=== PATIENT | male | born 1965 | race Caucasian/White ===

== ENCOUNTER 2021-12-01 10:35 | Emergency (ER) | payer BC ==
[~2021-12-01] VITALS: Ht 182.9 cm; Wt 99.8 kg
[2021-12-01 11:00] LABS: BASOPHILS % (AUTO) 0.1 % (0.0-5.0); EOSINOPHILS % (AUTO) 0.1 % (0.0-8.0); HEMATOCRIT 47.4 % (42-54); LYMPHOCYTES % (AUTO) 32.7 % (21.0-51.0); MEAN CORPUSCULAR HEMOGLOBIN 31.6 pg (27.0-33.0); MEAN CORPUSCULAR HGB CONC 33.8 g/dL (32.0-36.0); MEAN CORPUSCULAR VOLUME 93.5 fL (79-99); MONOCYTES % (AUTO) 12.4 % (3.0-13.0); NEUTROPHILS % (AUTO) 54.6 % (40.0-77.0); PLATELET COUNT (AUTO) 248 K/uL (130-400); RED BLOOD CELL COUNT(AUTO) 5.07 MIL/uL (4.50-6.20); RED CELL DISTRIBUTION WIDTH 12.3 % (11.0-15.5); WHITE BLOOD COUNT (AUTO) 7.7 K/uL (4.8-10.8)
[2021-12-01 11:10] LABS: CARBON DIOXIDE 22 mmol/L (21-32); CHLORIDE 103 mmol/L (101-111); CREATININE 1.1 mg/dL (0.5-1.5); GLOMERULAR FILTR. RATE CALC 74 mL/min (>60); GLUCOSE,RANDOM 153 mg/dL (70-105); POTASSIUM 4.1 mmol/L (3.5-5.1); SODIUM SERUM 140 mmol/L (136-145); UREA NITROGEN, BLOOD 12 mg/dL (7-18)
[2021-12-01 11:20] LABS: ALANINE AMINOTRANSFERASE 78 U/L (12-78); ALBUMIN 3.7 g/dL (3.5-5.0); ALCOHOL, BLOOD < 3 mg/dL (0-10); ASPARTATE AMINOTRANSFERASE 38 U/L (10-37); BILIRUBIN,TOTAL 0.7 mg/dL (0.2-1.0); CREATINE KINASE, TOTAL 73 U/L (21-232); MYOGLOBIN 22 ng/mL (10-92); TOTAL PROTEIN, SERUM 7.4 g/dL (6.0-8.3)
[2021-12-01 12:53] VITALS: BP 124/74
[2021-12-01 13:02] LABS: AMPHET/METH SCREEN,URINE NEGATIVE (NEGATIVE); BARBITURATE SCREEN, URINE NEGATIVE (NEGATIVE); BENZODIAZEPINES SCREEN,URINE NEGATIVE (NEGATIVE); CANNABINOID SCREEN,URINE NEGATIVE (NEGATIVE); COCAINE SCREEN,URINE NEGATIVE (NEGATIVE); OPIATE SCREEN,URINE NEGATIVE (NEGATIVE); PHENCYCLIDINE SCREEN,URINE NEGATIVE (NEGATIVE)
== END 2021-12-01 13:17 | disposition home or self-care (01) ==
LOC: EDH 10:35
DX: E86.0 Dehydration (principal); I10 Essential (primary) hypertension; Z88.0 Allergy status to penicillin
CPT/HCPCS: 36415; 70450; 80053; 80305; 82550; 83874; 84484; 85025; 93005

== ENCOUNTER 2025-04-09 12:18 | Emergency (ER) | payer BC ==
[~2025-04-09] VITALS: Ht 182.9 cm; Wt 95.3 kg
[2025-04-09 12:23] VITALS: TEMP 98.5; O2SAT 96
--- NOTE | 2025-04-09 13:59 | ERN ---
General Chief Complaint: Anxiety/Panic Attack Stated Complaint: PANIC Time Seen by MD: 12:49 Source: patient, family History of Present Illness Initial Comments 59-year-old male who is only past medical history is hypertension a comes in with feelings of chest tightness numbness in his arms and a funny feeling of being anxious. He was driving out of town in his symptoms were so bad he felt he just needed to stop and come to the emergency room for evaluation. Patient states he does use an nicotine pouches daily. Allergies: Coded Allergies: Penicillins (Unverified Allergy, Unknown, 12/01/21) Past Medical History Past Medical History: Hypertension Past Surgical History: None Constitutional: (-) chills, (-) diaphoresis, (-) fever, (-) malaise, (-) weakness, (-) other documentation EENTM: (-) eye pain, (-) blurred vision, (-) tearing, (-) double vision, (-) ear pain, (-) ear discharge, (-) nose pain, (-) nose congestion, (-) throat pain, (-) Throat swelling, (-) mouth pain, (-) tooth pain, (-) mouth swelling, (-) other documentation Respiratory: (-) cough, (-) orthopnea, (-) short of breath, (-) stridor, (-) wheezing, (-) other documentation Cardiovascular: (+) other documentation (Chest tightness) Gastrointestinal/Abdominal: (-) nausea, (-) vomiting, (-) diarrhea, (-) abdominal pain, (-) abdominal distention, (-) constipation, (-) rectal bleeding, (-) dark stool/melena, (-) other documentation Genitourinary: (-) penile discharge, (-) dysuria, (-) frequency, (-) hematuria, (-) pain, (-) other documentation Musculoskeletal: (-) Neck pain, (-) back pain, (-) Flank Pain, (-) joint pain, (-) joint swelling, (-) muscle pain, (-) muscle stiffness, (-) gout, (-) other documentation Physical Exam General Appearance: (+) mild distress Orientation: (+) alert, (+) oriented x 3 Head/Face Trauma: No Eye: bilateral eye normal inspection, bilateral eye PERRL, bilateral eye EOMI Ear, Nose, Throat: (+) hearing grossly normal, (+) normal ENT inspection, (+) moist mucous membraine Neck: (+) normal inspection, (+) supple, (+) full range of motion, (+) no JVD Respiratory: (+) chest non-tender, (+) lungs clear, (+) well ventilated Heart: (+) regular, (+) no gallop Vascular: (+) no edema, (+) normal peripheral pulse Gastrointestinal: (+) soft, (+) non-tender, (+) bowel sound present Results Laboratory and Microbiology Lab and Micro Result Laboratory Tests Test 04/09/25 13:27 04/09/25 13:58 04/09/25 14:54 Sodium Level 140 mmol/L (136-145) Potassium Level 4.1 mmol/L (3.5-5.1) Chloride Level 102 mmol/L (101-111) Carbon Dioxide Level 29 mmol/L (21-32) Blood Urea Nitrogen 14 mg/dL (7-18) Creatinine 1.0 mg/dL (0.5-1.3) Glomerular Filtration Rate Calc 87 mL/min (>90) Random Glucose 103 mg/dL (70-105) Lactic Acid Level 2.1 mmol/L (0.8-2.5) Total Calcium 9.2 mg/dL (8.5-10.1) Total Bilirubin 0.4 mg/dL (0.2-1.0) Aspartate Amino Transf (AST/SGOT) 64 U/L (10-37) H Alanine Aminotransferase (ALT/SGPT) 100 U/L (12-78) H Alkaline Phosphatase 80 U/L (50-136) Total Protein 7.3 g/dL (6.0-8.3) Albumin 3.6 g/dL (3.5-5.0) White Blood Count 7.5 K/uL (4.8-10.8) Red Blood Count 5.18 MIL/uL (4.50-6.20) Hemoglobin 16.6 g/dL (14.0-18.0) Hematocrit 48.0 % (42-54) Mean Corpuscular Volume 92.7 fL (79-99) Mean Corpuscular Hemoglobin 32.0 pg (27.0-33.0) Mean Corpuscular Hemoglobin Concent 34.6 g/dL (32.0-36.0) Red Cell Distribution Width 13.4 % (11.0-15.5) Platelet Count 254 K/uL (130-400) Mean Platelet Volume 10.0 fL (7.5-10.5) Immature Granulocyte % (Auto) 0.3 % (0-1) Neutrophils (%) (Auto) 71.6 % (40.0-77.0) Lymphocytes (%) (Auto) 18.1 % (21.0-51.0) L Monocytes (%) (Auto) 8.8 % (3.0-13.0) Eosinophils (%) (Auto) 0.7 % (0.0-8.0) Basophils (%) (Auto) 0.5 % (0.0-5.0) Neutrophils # (Auto) 5.4 K/uL (1.8-7.7) Lymphocytes # (Auto) 1.4 K/uL (1.0-4.8) Monocytes # (Auto) 0.7 K/uL (0.1-1.0) Eosinophils # (Auto) 0.05 K/uL (0.00-0.70) Basophils # (Auto) 0.04 K/uL (0.00-0.20) Absolute Immature Granulocyte (auto 0.02 K/uL (0-1) Nucleated Red Blood Cells 0.0 % (0.0-0.19) Troponin I High Sensitivity 7 ng/L (4-75) Urine Color LIGHT-YELLOW (YELLOW) Urine Appearance CLEAR (CLEAR) Urine pH 6.5 (5.0-8.0) Urine Specific [place] 1.010 (1.001-1.031) Urine Protein NEGATIVE mg/dL (NEGATIVE) Urine Glucose (UA) NEGATIVE mg/dL (NEGATIVE) Urine Ketones 5 mg/dL (NEGATIVE) H Urine Occult Blood NEGATIVE (NEGATIVE) Urine Nitrate NEGATIVE (NEGATIVE) Urine Bilirubin NEGATIVE mg/dL (NEGATIVE) Urine Urobilinogen 0.2 mg/dL (0.2-1.0) Urine Leukocyte Esterase NEGATIVE Meet/uL MDM MDM: Differential diagnosis: Nicotine withdrawal, dehydration, acute IL, PE, hyperventilation syndrome Rationale: Tests considered and ordered secondary to shared decision making include: Previous outside records reviewed: Old ER visits. Risk of complication and/or morbidity or mortality of patient management: None Medications-Per medication reconciliation Need for hospitalization: Patient does meet criteria for hospitalization. Need for emergency major/minor surgery: No There are no social concerns with this patient. Prescription drug management Prescriptions will include symptomatic care Patient's prior external medical records from other ER visits were reviewed by me as indicated. Prior testing and results from previous visits were reviewed. Prior tests were taken into account with medical decision making and resource utilization, independent historian/historians were used to obtain complete medical history. I independently interpreted the test that were performed, results were reviewed by me and considered findings on radiology if ordered. Patient's CBC is normal. Patient's chemistry panel likewise is normal. He did have a slight elevation in his transaminases. His cardiac enzymes were negative. His urine did show some ketones. Patient feels much better with a L of fluid in him. And he is ready to be discharged. ED Course Orders Procedure Category Date Status Time 12 Lead Ekg Tracing- EKG 04/09/25 Complete Technical 13:27 Comprehensive LAB 04/09/25 Complete Metabolic Panel 13:27 Cbc With Differential LAB 04/09/25 Complete 13:27 Lactic Acid LAB 04/09/25 Complete 13:27 Urinalysis Profile LAB 04/09/25 Complete 13:27 Troponin I High LAB 04/09/25 Complete Sensitivity 13:27 Lactated Ringers PHA 04/09/25 Complete 1000ml (Lactated 13:27 Current Medications Medications (Trade) Dose Ordered Sig/Jaden Route PRN Reason Start Time Stop Time Status Last Admin Dose Admin Lactated Ringer's (Lactated Ringers 1000ml) 1,000 ml BOLUS STAT IV 04/09/25 13:27 04/09/25 13:32 DC 04/09/25 15:28 Vital Signs Date Time Temp Pulse Resp B/P (MAP) Pulse Ox O2 Delivery O2 Flow Rate FiO2 04/09/25 15:00 49 18 164/97 Room Air* 0 21 04/09/25 12:23 98.4 97 18 163/115 96 Room Air* 0 21 04/09/25 12:20 98.4 97 18 163/115 96 Room Air 0 DX & DISP Disposition: Discharge Departure Impression: Primary Impression: Dehydration after exertion Condition: Stable Additional Instructions: My best guess is that your symptoms were driven by a dehydration. Your chemistry panel was normal except for a mild transaminitis. Please follow-up with her primary care Physician regarding this. Your complete blood count was normal as well. Your cardiac enzymes showed no signs of damage to your heart and your EKG was normal as well. There were some ketones in her urine, which can be a sign of dehydration. You do need to see a doctor to follow up and get your blood pressure under better control. Referrals: JANELLE BRIGHT MD (PCP) POLINA NIELSON MD Apr 09, 2025 13:59
[2025-04-09 14:14] LABS: IMMATURE GRANULOCYTE ABSOLUTE 0.02 K/uL (0-1); NUCLEATED RED BLOOD CELLS 0.0 % (0.0-0.19); PLATELET COUNT (AUTO) 254 K/uL (130-400); RED BLOOD CELL COUNT(AUTO) 5.18 MIL/uL (4.50-6.20); RED CELL DISTRIBUTION WIDTH 13.4 % (11.0-15.5); WHITE BLOOD COUNT (AUTO) 7.5 K/uL (4.8-10.8)
--- NOTE | 2025-04-09 14:22 | EKG ---
[facility] Test Date: 2025-04-09 Test Time: 12:06:36 Pat Name: GREYSON QUINN Department: ED Room: Gender: M Urology Physician: [facility] : 1965 Requested By: POLINA NIELSON Order Number: [id number] Reading MD: Ta Tobar Measurements Intervals [place] Rate: 104 P: 64 DE: 173 QRS: -32 QRSD: 105 T: 28 QT: 353 QTc: 465 Interpretive Statements Sinus tachycardia Left axis deviation Compared to ECG 12/01/2021 10:46:01 Left-axis deviation now present Sinus rhythm no longer present Incomplete right bundle-branch block no longer present Electronically Signed On 04-09-2025 17:25:51 CDT by Ta Tobar Please click the below link to view image of tracing.
[2025-04-09 14:27] LABS: CREATININE 1.0 mg/dL (0.5-1.3); GLOMERULAR FILTR. RATE CALC 87.0 mL/min (>90); GLUCOSE,RANDOM 103.0 mg/dL (70-105); SODIUM SERUM 140.0 mmol/L (136-145); UREA NITROGEN, BLOOD 14.0 mg/dL (7-18)
[2025-04-09 14:32] LABS: ASPARTATE AMINOTRANSFERASE 64.0 U/L (10-37); TOTAL PROTEIN, SERUM 7.3 g/dL (6.0-8.3)
--- NOTE | 2025-04-09 14:56 | NUR ---
PT MOVED INTO ER BED HC FOR ASSESSMENT AND IV INSERTION. PT WANTS TO HOLD OFF ON THE IV UNTIL LAB WORK RESULTS RETURN. ER PROVIDER MADE AWARE.
[2025-04-09 15:00] VITALS: BP 164/97; PULSE 49; RESP 18
[2025-04-09] MEDS: LACTATED RINGERS 1000ML IV STA (15:28)
[2025-04-09 15:29] LABS: APPEARANCE,URINE CLEAR (CLEAR); GLUCOSE, URINE (UA) NEGATIVE (NEGATIVE); LEUKOCYTE ESTERASE ,URINE NEGATIVE Leu/uL (NEGATIVE); NITRATE,URINE NEGATIVE (NEGATIVE); OCCULT BLOOD,URINE NEGATIVE (NEGATIVE)
[2025-04-09 15:34] LABS: ADD UA MICROSCOPIC NO
== END 2025-04-09 15:55 | disposition home or self-care (01) ==
LOC: EDH 12:18
DX: E86.0 Dehydration (principal); I10 Essential (primary) hypertension; Z88.0 Allergy status to penicillin
CPT/HCPCS: 99284; 96360; 96361; 84484; 80053; 85025; 83605; 81003; 36415; 93005; J7120

== ENCOUNTER → 2025-06-28 | Outpatient (CLI) | payer OTHER ==
--- NOTE | 2025-06-29 09:04 | HMCIMG ---
EXAM: CT Cardiac calcium scoring. CLINICAL HISTORY: Screening. TECHNIQUE: Thin collimated axial CT cardiac images were obtained. A CT scan is done according to ALARA (As Low As Reasonably Achievable). CONTRAST: None. COMPARISON: None provided. FINDINGS: Calcium Score: VESSEL Number of lesions Volume mm3 Equi. Mass/mg Calcium score LM 0 0.0 - 0.0 LAD 2 84.3 - 115.4 LCX 0 0.0 - 0.0 RCA 3 36.5 - 44.4 Total 5 120.8 - 159.8 IMPRESSION: The total calcium score is 159.8. 77th percentile. /[place]
== END | disposition home or self-care (01) ==
LOC: RAH 14:55
PROVIDERS: ATTEND Nurse Practitioner Adult Health
DX: Z13.6 Encounter for screening for cardiovascular disorders (principal)
CPT/HCPCS: 75571